=== PATIENT | female | born 1970 | race Caucasian/White ===

== ENCOUNTER → 2018-04-15 | Outpatient (CLI) | payer OTHER ==
[~2018-04-15] MED LIST: ADVAIR; ALBU3IS INH; ALBU90OI; ALBU90OI6 INH; ALBU90OI61 INH; ALPR.5 PO; AMIT25 PO; ARIP30 PO; ATOR10; BENZ.5 PO; BENZ2 PO; BUSP15 PO; Budeprion Xl300 MG; CEPH500 PO; CLON1 PO; CLON2; CLON2 PO; CLONIDINE PO; CRUTCH USE; DESV50 PO; DIALYVITE50000 UNIT PO; DICY20 PO; DOCU100 PO; DULO60 PO; Desyrel50 MG PO; EFFEXOR; ERGO50000 PO; ESCI20 PO; ESTNOR PO; ESTROGEN PO; FAMO20 PO; FERR325 PO; FLORASTOR PO; FLUO20; FLUSAL2505 IH; FLUSAL5005; FLUSAL5005 IH; FURO20 PO; FURO40 PO; GABA300 PO; HYDACE5; HYDACE5 PO; HYDACE7.5; HYDGUAL120 PO; HYDPAM50 PO; IBUP800; IBUP800 PO; Imitrex100 MG PO; K-Dur20 MEQ PO; LATUDA120 MG PO; LEVAQUIN IV; LEVSOD50 PO; LISI5 PO; LITH300C PO; LORA1; LOVA20 PO; LOVA40 PO; MELO7.5 PO; MIRT15 PO; NAPR500 PO; NEOPOLHCSU OT; NICO14TP TOP; Naprosyn500 MG PO; OLAN20 MM; OMEP20ER PO; OMEP40CA12 PO; OMEPRAZOLE MAGN20 MG PO; ONDA4ODT MM; OXYACE5T PO; OXYB5 PO; PARO10 PO; PARO30 PO; POTCHL20ER PO; PREN-16 PO; PROM25 PO; PROZAC PO; Phentermine HCl30 MG; QUET300; ROPI.25 PO; ROSI2; SULTRIDS PO; TOPI100 PO; TRAM50 PO; TRAZ100; VANCOMYCIN IV; VENL75ER; VERA120ER PO; VICODIN; VITAMIN B; ZIPR40 PO; ZIPR80 PO; ZOFRAN IV; ZOLP10 PO; Zosyn 4.54.5 GM/100 IV
[2018-04-15 18:13] LABS: U Amphetamine Screen Not Detected; U Barbituate Screen Not Detected; U Benzodiazapine Screen Not Detected; U Buprenorphine Screen DETECTED; U Cannabinoids Screen Not Detected; U Cocaine Screen Not Detected; U Methadone Screen Not Detected; U Methamphetamine Screen Not Detected; U Opiates Screen Not Detected; U Oxycodone Screen Not Detected; U Phencyclidine Screen Not Detected; U Propoxyphene Screen Not Detected
== END ==
LOC: LAB SHORT 16:40 → LAB 16:40
PROVIDERS: Psychiatry & Neurology Psychiatry
DX: Z51.81 Encounter for therapeutic drug level monitoring (principal); Z79.899 Other long term (current) drug therapy

== ENCOUNTER → 2018-05-07 | Outpatient (CLI) | payer OTHER | LOC: LAB SRC 10:07 → LAB SHORT 10:07 | DX: Z51.81 Encounter for therapeutic drug level monitoring (principal); Z79.899 Other long term (current) drug therapy | CPT/HCPCS: G0480 ==

== ENCOUNTER 2018-12-11 17:26 | Emergency (ER) | payer OTHER ==
[~2018-12-11] VITALS: Ht 160 cm; Wt 129.3 kg
[2018-12-11 17:52] LABS: BASOPHILS ABSOLUTE AUTO 0.03 K/mm3 (0.00-0.23); BASOPHILS PERCENT AUTO 1 % (0-2); EOSINOPHILS ABSOLUTE AUTO 0.04 K/mm3 (0.00-0.68); EOSINOPHILS PERCENT AUTO 1 % (0-6); Hematocrit 41.7 % (33.0-51.0); Hemoglobin 14.1 g/dL (11.5-16.0); IMMATURE GRAN ABSOLUTE AUTO 0.01 K/mm3 (0.00-0.10); IMMATURE GRAN PERCENT AUTO 0 % (0-1); LYMPHOCYTES ABSOLUTE AUTO 0.77 K/mm3 (0.84-5.20); LYMPHOCYTES PERCENT AUTO 26 % (21-46); MONOCYTES ABSOLUTE AUTO 0.23 K/mm3 (0.16-1.47); MONOCYTES PERCENT AUTO 8 % (4-13); Mean Corpuscular HGB 35.6 pg (26.0-34.0); Mean Corpuscular HGB Conc 33.8 g/dL (31.5-36.5); Mean Corpuscular Volume 105 fL (80-100); Mean Platelet Volume 9.8 fL (9.1-12.4); NEUTROPHILS ABSOLUTE AUTO 1.89 K/mm3 (1.96-9.15); NEUTROPHILS PERCENT AUTO 64 % (41-73); Platelet Count 70 K/mm3 (150-400); RDW Coefficient Variation 11.4 % (11.7-14.2); RDW Standard Deviation 44.8 fL (35.1-46.3); Red Blood Cell Count 3.96 M/mm3 (3.80-5.20); White Blood Cell Count 2.97 K/mm3 (4.00-11.30)
[2018-12-11 18:34] LABS: Alanine Aminotransfer (ALT/SGP 76 U/L (12-78); Albumin, Blood 3.5 g/dL (3.4-5.0); Albumin/Globulin Ratio 0.9 (0.8-1.8); Alk Phos 84 U/L (50-136); Anion Gap 6 mmol/L (6-16); Aspartate Aminotrans (AST/SGOT 53 U/L (12-37); Bilirubin, Total 0.7 mg/dL (0.1-1.0); Blood Urea Nitrogen 12 mg/dL (8-24); CO2, Blood 24 mmol/L (21-32); Calcium, Blood 8.9 mg/dL (8.5-10.1); Chloride, Blood 109 mmol/L (98-108); Globulin, Blood 3.9 g/dL (2.2-4.0); Glomerular Filtration Rate >60 (60-); Glucose, Blood 96 mg/dL (70-99); Potassium, Blood 3.9 mmol/L (3.5-5.5); Sodium, Blood 139 mmol/L (136-145); Total Protein, Blood 7.4 g/dL (6.4-8.2); Troponin I <0.015 ng/mL (0.000-0.040)
[2018-12-11] MEDS ORDERED: Protonix40 MG PO (21:43)
== END 2018-12-11 21:58 | disposition home or self-care (01) ==
LOC: ER 17:26
PROVIDERS: Emergency Medicine
DX: K21.9 Gastro-esophageal reflux disease without esophagitis (principal); G43.909 Migraine, unspecified, not intractable, without status migrainosus; F17.200 Nicotine dependence, unspecified, uncomplicated; Z79.899 Other long term (current) drug therapy
CPT/HCPCS: 36415; 71046; 80053; 83690; 84484; 85025; 93005; 93010; 96374; 96375; 99285-25; C9113; J2405

== ENCOUNTER 2019-03-26 08:47 | Day surgery (SDC) | payer OTHER ==
[~2019-03-26 08:47] MED LIST changes: +Protonix40 MG PO
--- NOTE | 2019-03-26 11:00 | NUR ---
RECEIVED REPORT FROM NESSA ROSAS. ASSUMING CARE OF PATIENT. PT CURRENTLY RESTING ON SIDE. VSS. ABLE TO CHANGE POSITION IN FIVE MINUTES.
--- NOTE | 2019-03-26 11:16 | NUR ---
PT C/O PAIN/PRESSURE TO RIGHT POSTERIOR LOWER RIB CAGE AREA WITH DEEP BREATH. RATES 7/10 AND REQUESTS PAIN MEDICATION FOR THIS. CALL PLACED TO MD NO ORDERS AVAILABLE. AWAITING CALL BACK. NO RESPIRATORY DISTRESS NOTED. VSS.
--- NOTE | 2019-03-26 11:32 | NUR ---
RETURNED CALL. ORDERS RECEIVED FOR TYLENOL 500 MG PO X 1 IF NEEDED. PT DECIDES NOT TO TAKE TYLENOL AND JUST "WAIT IT OUT" WILL CONTINUE TO MONITOR.
--- NOTE | 2019-03-26 11:36 | NUR ---
PT RESTING ON STRETCHER WITH EYES CLOSED, DEEP EVEN BREATHING
--- NOTE | 2019-03-26 12:34 | NUR ---
SUMMARY: PT HAD UNCOMPLICATED POST PROCEDURE COURSE FOR REST OF STAY.ABLE TO AMBULATE IN DEPARTMENT TO BATHROOM.NO C/OINCREASING PAIN OR DISCOMFORT. PT ABLE TO DRESS SELF. NO IV IN PLACE. REVIEWED DISCHARGE INSTRUCTIONS WITH PATIENT WHO VERBALIZED UNDERSTANDING OF ALL INSTRUCTIONS. PT DISCHARGED HOME VIA WITH TAXI TO DRIVE HER.
== END 2019-03-26 23:04 | disposition home or self-care (01) ==
LOC: LAB 08:47 → US 08:47
DX: B18.2 Chronic viral hepatitis C (principal); K76.0 Fatty (change of) liver, not elsewhere classified
CPT/HCPCS: 36415; 47000; 76942; 85730; 88307; 88313

== ENCOUNTER → 2019-10-14 | Outpatient (CLI) | payer OTHER ==
[2019-10-14 15:22] LABS: Bun/Creatinine Ratio 13.5 (12.0-20.0); Calcium, Blood 8.5 mg/dL (8.5-10.1); Creatinine, Blood 1.41 mg/dL (0.40-1.00)
== END | disposition home or self-care (01) ==
LOC: LAB SHORT 14:50 → LAB 14:50
PROVIDERS: Internal Medicine
DX: R79.89 Other specified abnormal findings of blood chemistry (principal)
CPT/HCPCS: 80048

== ENCOUNTER → 2019-10-21 | Outpatient (CLI) | payer OTHER ==
[2019-10-21 20:09] LABS: Bun/Creatinine Ratio 8.3 (12.0-20.0); Calcium, Blood 8.8 mg/dL (8.5-10.1); Creatinine, Blood 1.08 mg/dL (0.40-1.00)
== END | disposition home or self-care (01) ==
LOC: LAB SHORT 14:56 → LAB 14:56
PROVIDERS: Internal Medicine
DX: R79.89 Other specified abnormal findings of blood chemistry (principal)
CPT/HCPCS: 80048

== ENCOUNTER → 2019-10-28 | Outpatient (CLI) | payer OTHER ==
[2019-10-28 17:13] LABS: BASOPHILS ABSOLUTE AUTO 0.04 K/mm3 (0.00-0.23); BASOPHILS PERCENT AUTO 1 % (0-2); EOSINOPHILS ABSOLUTE AUTO 0.18 K/mm3 (0.00-0.68); EOSINOPHILS PERCENT AUTO 3 % (0-6); Hematocrit 38.8 % (33.0-51.0); Hemoglobin 13.1 g/dL (11.5-16.0); IMMATURE GRAN ABSOLUTE AUTO 0.02 K/mm3 (0.00-0.10); IMMATURE GRAN PERCENT AUTO 0 % (0-1); LYMPHOCYTES ABSOLUTE AUTO 1.41 K/mm3 (0.84-5.20); LYMPHOCYTES PERCENT AUTO 23 % (21-46); MONOCYTES ABSOLUTE AUTO 0.52 K/mm3 (0.16-1.47); MONOCYTES PERCENT AUTO 8 % (4-13); Mean Corpuscular HGB 34.7 pg (26.0-34.0); Mean Corpuscular HGB Conc 33.8 g/dL (31.5-36.5); Mean Corpuscular Volume 103 fL (80-100); Mean Platelet Volume 10.2 fL (9.1-12.4); NEUTROPHILS ABSOLUTE AUTO 4.04 K/mm3 (1.96-9.15); NEUTROPHILS PERCENT AUTO 65 % (41-73); Platelet Count 152 K/mm3 (150-400); RDW Coefficient Variation 12.4 % (11.7-14.2); RDW Standard Deviation 46.9 fL (35.1-46.3); Red Blood Cell Count 3.77 M/mm3 (3.80-5.20); White Blood Cell Count 6.21 K/mm3 (4.00-11.30)
[2019-10-28 17:37] LABS: Alanine Aminotransfer (ALT/SGP 46 U/L (12-78); Albumin, Blood 3.3 g/dL (3.4-5.0); Albumin/Globulin Ratio 0.5 (0.8-1.8); Alk Phos 135 U/L (50-136); Anion Gap 4 mmol/L (6-16); Aspartate Aminotrans (AST/SGOT 44 U/L (12-37); Bilirubin, Total 0.6 mg/dL (0.1-1.0); Blood Urea Nitrogen 13 mg/dL (8-24); Bun/Creatinine Ratio 12.9 (12.0-20.0); CO2, Blood 27 mmol/L (21-32); Calcium, Blood 9.4 mg/dL (8.5-10.1); Chloride, Blood 104 mmol/L (98-108); Creatinine, Blood 1.01 mg/dL (0.40-1.00); Globulin, Blood 6.4 g/dL (2.2-4.0); Glomerular Filtration Rate >60 (60-); Glucose, Blood 91 mg/dL (70-99); Sodium, Blood 135 mmol/L (136-145); Total Protein, Blood 9.7 g/dL (6.4-8.2)
== END | disposition home or self-care (01) ==
LOC: LAB HH 16:00
PROVIDERS: Family Medicine
DX: R73.09 Other abnormal glucose (principal); R79.89 Other specified abnormal findings of blood chemistry; R68.89 Other general symptoms and signs
CPT/HCPCS: 80053; 83036; 85025

== ENCOUNTER 2019-11-16 00:46 | Day surgery (SDC) | payer OTHER | END 2019-11-16 22:41 | disposition home or self-care (01) | LOC: WOUND 00:46 | DX: E11.622 Type 2 diabetes mellitus with other skin ulcer (principal); L98.492 Non-pressure chronic ulcer of skin of other sites with fat layer exposed; I10 Essential (primary) hypertension; E78.5 Hyperlipidemia, unspecified; F32.9 Major depressive disorder, single episode, unspecified; F41.9 Anxiety disorder, unspecified; G47.33 Obstructive sleep apnea (adult) (pediatric); J45.909 Unspecified asthma, uncomplicated; E03.9 Hypothyroidism, unspecified; F17.210 Nicotine dependence, cigarettes, uncomplicated; Z88.8 Allergy status to other drugs, medicaments and biological substances; Z79.899 Other long term (current) drug therapy | CPT/HCPCS: G0463 ==

== ENCOUNTER → 2021-04-27 | Outpatient (CLI) | payer OTHER | LOC: LAB SHORT 19:00 → LAB 19:00 | DX: R30.9 Painful micturition, unspecified (principal) | CPT/HCPCS: 87077; 87086; 87186 ==

== ENCOUNTER → 2023-03-12 | Outpatient (CLI) | payer OTHER ==
[2023-03-12 16:27] LABS: Bun/Creatinine Ratio 17.4 (12.0-20.0); Calcium, Blood 9.7 mg/dL (8.5-10.1); Creatinine, Blood 0.75 mg/dL (0.40-1.00); Potassium, Blood 3.2 mmol/L (3.5-5.5)
== END ==
LOC: LAB 10:40 → LAB SHORT 10:40
PROVIDERS: Physician Assistant
DX: E87.6 Hypokalemia (principal); E66.01 Morbid (severe) obesity due to excess calories
CPT/HCPCS: 80048

== ENCOUNTER 2023-09-01 11:07 | Emergency (ER) | payer OTHER ==
[~2023-09-01] VITALS: Ht 160 cm; Wt 145.2 kg
[2023-09-01 11:12] VITALS: BP 117/62
[2023-09-01 11:39] LABS: BASOPHILS ABSOLUTE AUTO 0.02 K/mm3 (0.00-0.23); BASOPHILS PERCENT AUTO 0 % (0-2); EOSINOPHILS ABSOLUTE AUTO 0.07 K/mm3 (0.00-0.68); EOSINOPHILS PERCENT AUTO 1 % (0-6); Hematocrit 40.2 % (33.0-51.0); Hemoglobin 13.7 g/dL (11.5-16.0); IMMATURE GRAN ABSOLUTE AUTO 0.02 K/mm3 (0.00-0.10); IMMATURE GRAN PERCENT AUTO 0 % (0-1); LYMPHOCYTES ABSOLUTE AUTO 0.66 K/mm3 (0.84-5.20); LYMPHOCYTES PERCENT AUTO 10 % (21-46); MONOCYTES ABSOLUTE AUTO 0.47 K/mm3 (0.16-1.47); MONOCYTES PERCENT AUTO 7 % (4-13); Mean Corpuscular HGB 35.6 pg (26.0-34.0); Mean Corpuscular HGB Conc 34.1 g/dL (31.5-36.5); Mean Corpuscular Volume 104 fL (80-100); Mean Platelet Volume 9.3 fL (9.1-12.4); NEUTROPHILS ABSOLUTE AUTO 5.53 K/mm3 (1.96-9.15); NEUTROPHILS PERCENT AUTO 82 % (41-73); Platelet Count 79 K/mm3 (150-400); RDW Coefficient Variation 13.6 % (11.7-14.2); RDW Standard Deviation 51.7 fL (35.1-46.3); Red Blood Cell Count 3.85 M/mm3 (3.80-5.20); White Blood Cell Count 6.77 K/mm3 (4.00-11.30)
[2023-09-01 11:59] LABS: Albumin, Blood 3.1 g/dL (3.4-5.0); Albumin/Globulin Ratio 0.8 (0.8-1.8); Bilirubin, Total 1.9 mg/dL (0.1-1.0); Bun/Creatinine Ratio 17.4 (12.0-20.0); Calcium, Blood 8.7 mg/dL (8.5-10.1); Creatinine, Blood 0.69 mg/dL (0.40-1.00); Globulin, Blood 3.8 g/dL (2.2-4.0); Potassium, Blood 4.1 mmol/L (3.5-5.5); Total Protein, Blood 6.9 g/dL (6.4-8.2)
[2023-09-01] MEDS ORDERED: ALBU90OI INH (13:02)
[2023-09-01] MEDS ORDERED: Percocet 5-3251 EACH PO (13:02)
[2023-09-01] MEDS ORDERED: LIDO700A20 TOP (13:02)
[2023-09-01] MEDS ORDERED: BENZ100A PO (13:02)
[2023-09-01] MEDS ORDERED: PRED20 PO (13:02)
== END 2023-09-01 13:30 | disposition home or self-care (01) ==
LOC: ER 11:07
PROVIDERS: Student in an Organized Health Care Education/Training Program
DX: J40 Bronchitis, not specified as acute or chronic (principal); R07.89 Other chest pain; Z88.8 Allergy status to other drugs, medicaments and biological substances; Z79.899 Other long term (current) drug therapy; G43.909 Migraine, unspecified, not intractable, without status migrainosus; F17.200 Nicotine dependence, unspecified, uncomplicated
CPT/HCPCS: 71046; 80053; 85025; 93005; 93010; 96374; 96375; 99285-25; A9270; J2405; J3010

== ENCOUNTER 2023-09-17 17:33 | Emergency (ER) | payer OTHER ==
[~2023-09-17] VITALS: Ht 162.6 cm; Wt 127.0 kg
[~2023-09-17 17:33] MED LIST changes: +ALBU90OI INH; +BENZ100A PO; +LIDO700A20 TOP; +PRED20 PO; +Percocet 5-3251 EACH PO
[2023-09-17 18:00] VITALS: BP 161/98
== END 2023-09-17 19:19 | disposition left against medical advice (07) ==
LOC: ER 17:33
DX: R06.02 Shortness of breath (principal); R07.9 Chest pain, unspecified; Z53.21 Procedure and treatment not carried out due to patient leaving prior to being seen by health care provider
CPT/HCPCS: 71046

== ENCOUNTER → 2024-03-12 | Outpatient (CLI) | payer OTHER ==
[2024-03-12 19:44] LABS: BASOPHILS ABSOLUTE AUTO 0.03 K/mm3 (0.00-0.23); BASOPHILS PERCENT AUTO 1 % (0-2); EOSINOPHILS ABSOLUTE AUTO 0.08 K/mm3 (0.00-0.68); EOSINOPHILS PERCENT AUTO 3 % (0-6); Hematocrit 37.6 % (33.0-51.0); Hemoglobin 12.8 g/dL (11.5-16.0); IMMATURE GRAN ABSOLUTE AUTO 0.02 K/mm3 (0.00-0.10); IMMATURE GRAN PERCENT AUTO 1 % (0-1); LYMPHOCYTES ABSOLUTE AUTO 0.86 K/mm3 (0.84-5.20); LYMPHOCYTES PERCENT AUTO 29 % (21-46); MONOCYTES PERCENT AUTO 10 % (4-13); Mean Corpuscular Volume 106 fL (80-100); Mean Platelet Volume 10.6 fL (9.1-12.4); NEUTROPHILS PERCENT AUTO 57 % (41-73); Platelet Count 96 K/mm3 (150-400); RDW Coefficient Variation 14.3 % (11.7-14.2); RDW Standard Deviation 55.4 fL (35.1-46.3); Red Blood Cell Count 3.56 M/mm3 (3.80-5.20); White Blood Cell Count 2.99 K/mm3 (4.00-11.30)
[2024-03-12 20:20] LABS: Very Low Density Lipoprot Chol 9 mg/dL (6-32)
[2024-03-12 20:30] LABS: Alanine Aminotransfer (ALT/SGP 29 U/L (12-78); Albumin, Blood 3.3 g/dL (3.4-5.0); Albumin/Globulin Ratio 0.9 (0.8-1.8); Alk Phos 149 U/L (50-136); Anion Gap 9 mmol/L (3-11); Aspartate Aminotrans (AST/SGOT 22 U/L (12-37); Bilirubin, Direct 0.2 mg/dL (0.0-0.3); Bilirubin, Indirect 0.5 mg/dL (0.1-0.7); Bilirubin, Total 0.7 mg/dL (0.1-1.0); Blood Urea Nitrogen 12 mg/dL (8-24); Bun/Creatinine Ratio 18.5 (12.0-20.0); CHOL/HDL RATIO 2.5; CO2, Blood 26 mmol/L (21-32); Calcium, Blood 8.9 mg/dL (8.5-10.1); Chloride, Blood 107 mmol/L (98-108); Cholesterol 175 mg/dL (50-200); Creatinine, Blood 0.65 mg/dL (0.40-1.00); Globulin, Blood 3.8 g/dL (2.2-4.0); Glomerular Filtration Rate 106 (60-); Glucose, Blood 100 mg/dL (70-99); HDL Cholesterol 69 mg/dL (>39); LDL/HDL RATIO 1.4; Low Density Lipoprotein Chol 97 mg/dL (0-110); Potassium, Blood 3.8 mmol/L (3.5-5.5); Sodium, Blood 138 mmol/L (136-145); Thyroid Stimulating Hormone 0.979 uIU/mL (0.360-4.800); Total Protein, Blood 7.1 g/dL (6.4-8.2); Triglycerides 45 mg/dL (30-160)
== END | disposition home or self-care (01) ==
LOC: LAB SHORT 18:37 → LAB 18:37
PROVIDERS: Nurse Practitioner Family
DX: E78.2 Mixed hyperlipidemia (principal); E03.9 Hypothyroidism, unspecified; E55.9 Vitamin D deficiency, unspecified; I10 Essential (primary) hypertension
CPT/HCPCS: 80053; 80061; 82248; 82306; 83880; 84443; 85025

== ENCOUNTER → 2024-09-22 | Outpatient (CLI) | payer OTHER | END | disposition home or self-care (01) | LOC: LAB SHORT 16:12 → LAB 16:12 | DX: N39.0 Urinary tract infection, site not specified (principal) | CPT/HCPCS: 87086 ==

== ENCOUNTER → 2025-07-09 | Outpatient (CLI) | payer OTHER | LOC: LAB SHORT 16:10 → LAB 16:10 | DX: L02.512 Cutaneous abscess of left hand (principal) | CPT/HCPCS: 87070; 87077; 87147; 87186; 87205 ==